=== PATIENT | male | born 1965 | race Two or more races ===

== ENCOUNTER 2019-11-02 09:29 | Emergency (ER) | payer MEDICAID, OTHER ==
[~2019-11-02] VITALS: Ht 188 cm; Wt 99.8 kg
[2019-11-02 09:40] VITALS: BP 161/89
[2019-11-02] MEDS ORDERED: IBUPROFEN 800 MG TAB PO ONE (10:15)
== END 2019-11-02 11:10 | disposition home or self-care (01) ==
LOC: ER 09:29
DX: S82.432A Displaced oblique fracture of shaft of left fibula, initial encounter for closed fracture (principal); Z88.6 Allergy status to analgesic agent; W01.0XXA Fall on same level from slipping, tripping and stumbling without subsequent striking against object, initial encounter; Y93.89 Activity, other specified; Y92.89 Other specified places as the place of occurrence of the external cause; Y99.8 Other external cause status
CPT/HCPCS: 29515; 73610

== ENCOUNTER 2021-09-14 12:50 | Emergency (ER) | payer MEDICAID, OTHER ==
[~2021-09-14] VITALS: Ht 188 cm; Wt 95.3 kg
[2021-09-14] MEDS ORDERED: TETANUS-DIPTH-ACEL PERTUSSIS 0.5ML SYR Tdap IM ONE (14:30)
[2021-09-14] MEDS ORDERED: ceFAZolin 1GM/50ML 50 ML IV ONE (14:30)
[2021-09-14] MEDS ORDERED: LIDOCAINE 2%HCL (LOCAL ANESTH.) INJ 10ml MDV IJ ONE ×2 (16:15→16:45)
[2021-09-14] MEDS ORDERED: LIDOCAINE 2% (LOCAL ANESTH.) PF 5ml SDV ONE (16:28)
[2021-09-14 18:26] VITALS: BP 134/81
[2021-09-14] MEDS ORDERED: CEPH500T PO (18:56)
== END 2021-09-14 19:33 | disposition home or self-care (01) ==
LOC: ER 12:50
DX: S62.602B Fracture of unspecified phalanx of right middle finger, initial encounter for open fracture (principal); F12.10 Cannabis abuse, uncomplicated; X58.XXXA Exposure to other specified factors, initial encounter; Y93.89 Activity, other specified; Y92.89 Other specified places as the place of occurrence of the external cause; Y99.8 Other external cause status
CPT/HCPCS: 12001; 29130; 73140; 90471; 90715; 96365; 96366; 99284; J0690; J2001